=== PATIENT | female | born 1995 | race American Indian/Alaskan Native ===

== ENCOUNTER 2018-07-25 13:26 | Emergency (ER) | payer BC ==
[2018-07-25 13:40] VITALS: TEMP 97.9; BMI 23.1
--- NOTE | 2018-07-25 14:11 | ED PDOC ---
Arrival/HPI - General Chief Complaint: Back Pain Time Seen by Provider: 07/25/18 13:33 Historian: Patient - History of Present Illness Narrative History of Present Illness (Text): 07/25/18 14:00 A 23 year old female, with no significant past medical history, presents to the emergency department complaining of right-side abdominal pain radiating to back. Intensity of pain is intermittent. Patient reports earlier today the pain was bearable. However, at around approximately 11:00, pain became unbearable and was unable to sit. States having similar pain in the past. However she mentions she was having dysuria at the time, and currently is not experiencing this urinary issue with the right-side pain. Patient denies any other complaints at this time. No fever, no vomit, no diarrhea, no abnormal vaginal discharge. No PMD 07/26/18 11:16 Past Medical History - Provider Review Nursing Documentation Reviewed: Yes - Psychiatric Hx Substance Use: No Family/Social History - Physician Review Nursing Documentation Reviewed: Yes Family/Social History: No Known Family HX Smoking Status: Never Smoked Hx Alcohol Use: No Hx Substance Use: No Allergies/Home Meds Allergies/Adverse Reactions: Allergies No Known Allergies Allergy (Verified 07/25/18 13:39) Home Medications: Home Meds Medication Instructions Recorded Confirmed RX: No Known Home Med 07/25/18 07/25/18 Review of Systems - Physician Review All systems were reviewed & negative as marked: Yes - Review of Systems Constitutional: absent: Fevers Gastrointestinal: Abdominal Pain (right-side pain radiating to back, intensity of pain is intermittent) Genitourinary Female: absent: Dysuria Physical Exam - Physical Exam Narrative Physical Exam (Text): Gen: VS reviewed, alert, well developed, well nourished, nontoxic, mild distress Eye: EOMI, PERRL Neck: no JVD, supple, no adenopathy CV: regular rate, regular rhythm, no rubs,no murmur, S1, S2 Pulm: no distress, clear to auscultation, no wheeze, no rhonchi, breath sounds equal, no rales Abd: soft, nontender, no guarding, no rebound, no rigidity, old surgical scarring Ext: no edema Skin: good color, no rash, no cyanosis Psych: responds appropriately to questions, normal affect Neuro: oriented x3, CN2-12 intact grossly, motor intact, sensation intact Vital Signs Reviewed: Yes Vital Signs Temp Pulse Resp BP Pulse Ox 07/25/18 13:39 97.9 F 68 17 116/80 100 Temperature: Afebrile Blood Pressure: Normal Pulse: Regular Respiratory Rate: Normal Appearance: Positive for: Well-Appearing, Non-Toxic, Comfortable Pain Distress: None Mental Status: Positive for: Alert and Oriented X 3 Medical Decision Making ED Course and Treatment: 07/25/18 14:04 Impression: 23 year old female with right-side abdominal pain radiating to back. No acute findings on physical exam. Plan: -- Abd/Pelvis CT -- Labs -- Urinalysis -- POC Urine Test -- Urine Culture -- Reassess and disposition Progress Notes: 07/25/18 18:50 patient feels well, pain controlled at this time. patient will follow up with her inside finisher this coming friday. patient understands and agreeable to plan. - RAD Interpretation Narrative RAD Interpretations (Text): 07/25/2018 15:40 Abd/Pelvis CT IMPRESSION: Large right adnexal soft tissue mass, possibly enlarged ovary or ovarian in etiology. Recommend pelvic ultrasound for further evaluation. Mesenteric/pericecal sub cm lymph nodes, nonspecific. The appendix is not visualized. No secondary signs of acute appendicitis. Right lower lobe atelectasis and/or scarring. Dictator: Meghann Christine MD Radiology Orders: 07/25/18 13:57 ABDOMEN & PELVIS [ABD & PELVIS W/O PO OR IV CONT] [CT] Stat - Scribe Statement The provider has reviewed the documentation as recorded by the Buddy Landry Provider Scribe Attestation: All medical record entries made by the Scribe were at my direction and personally dictated by me. I have reviewed the chart and agree that the record accurately reflects my personal performance of the history, physical exam, medical decision making, and the department course for this patient. I have also personally directed, reviewed, and agree with the discharge instructions and disposition. Disposition/Present on Arrival - Present on Arrival Any Indicators Present on Arrival: No History of DVT/PE: No History of Uncontrolled Diabetes: No Urinary Catheter: No History of Decub. Ulcer: No History Surgical Site Infection Following: None - Disposition Have Diagnosis and Disposition been Completed?: Yes Diagnosis: Hemorrhagic cyst of right ovary Disposition: HOME/ ROUTINE Disposition Time: 18:50 Patient Plan: Discharge Condition: STABLE Discharge Instructions (ExitCare): Ovarian Cyst (DC) Forms: [facility] [employer] [facility] ([place]ian), WORK NOTE
[2018-07-25 14:58] LABS: ALB/GLOB RATIO 1.4 (1.1-1.8); ALBUMIN 5.1 g/dL (3.0-4.8); ALT/SGPT 24 U/L (7-56); AST/SGOT 27 U/L (14-36); BLOOD UREA NITROGEN 10 mg/dL (7-21); CALCIUM 9.9 mg/dL (8.4-10.5); GFR NON-AFRICAN AMERICAN > 60
[2018-07-25 14:59] LABS: URINE BILIRUBIN NEGATIVE (NEGATIVE); URINE BLOOD NEGATIVE (NEGATIVE); URINE GLUCOSE (UA) NEGATIVE (NEGATIVE); URINE LEUKOCYTE ESTERASE NEGATIVE Leu/uL (NEGATIVE); URINE PROTEIN NEGATIVE mg/dL (<30 mg/dL); URINE UROBILINOGEN 0.2 E.U./dL (<1 E.U./dL)
[2018-07-25 15:02] LABS: BASO # 0.01 K/mm3 (0.0-2.0); BASO % 0.2 % (0.0-3.0); EOS # 0.1 (0.0-0.7); EOS % 1.3 % (1.5-5.0); GRAN # 2.53 (1.4-6.5); GRAN % 55.4 % (50.0-68.0); HEMOGLOBIN 14.1 g/dL (12.0-16.0); LYMPH # 1.7 (1.2-3.4); LYMPH % 36.3 % (22.0-35.0); MEAN CELL VOLUME 86.9 fl (80.0-105.0); MEAN CORPUSCULAR HEMOGLOBIN 28.5 pg (25.0-35.0); MEAN CORPUSCULAR HGB CONC 32.8 g/dl (31.0-37.0); MEAN PLATELET VOLUME 10.5 fl (7.0-11.0); MONO # 0.3 (0.1-0.6); MONO % 6.8 % (1.0-6.0); RBC 4.95 10^6/uL (3.5-6.1); RED CELL DISTRIBUTION WIDTH 12.6 % (11.5-14.5); WHITE BLOOD COUNT 4.6 10^3/uL (4.5-11.0)
[2018-07-25 15:04] LABS: URINE APPEARANCE CLEAR (CLEAR); URINE COLOR YELLOW (YELLOW)
--- NOTE | 2018-07-25 15:46 | CT ---
PROCEDURE: CT Abdomen and Pelvis without Oral or IV contrast. HISTORY: right flank pain COMPARISON: None available. TECHNIQUE: Contiguous axial images of the abdomen and pelvis. No oral or IV contrast administered. Coronal and Sagittal reformats generated and reviewed. Radiation dose: Total exam DLP = 229.74 mGy-cm. This CT exam was performed using one or more of the following dose reduction techniques: Automated exposure control, adjustment of the mA and/or kV according to patient size, and/or use of iterative reconstruction technique. FINDINGS: Examination limited by paucity of intra-abdominal/intrapelvic fat. There is limited evaluation of the solid organs without the administration of IV contrast. LOWER THORAX: Right lower lobe atelectasis and/or scarring. No visible pleural effusion or pneumothorax. LIVER: Unremarkable unenhanced appearance. GALLBLADDER AND BILE DUCTS: Unremarkable unenhanced appearance. PANCREAS: Unremarkable unenhanced appearance. SPLEEN: Unremarkable unenhanced appearance. ADRENALS: Unremarkable unenhanced appearance. KIDNEYS AND URETERS: No hydronephrosis or obstructing renal calculus. BLADDER: The urinary bladder appears unremarkable. REPRODUCTIVE: Uterus is present. Large right adnexal soft tissue mass, possibly ovary or ovarian in etiology. APPENDIX: The appendix is not definitively identified. No secondary signs of acute appendicitis. BOWEL: The stomach is nondistended. Lack of oral contrast limits evaluation for bowel pathology. The bowel loops appear within normal limits of caliber without evidence of intestinal obstruction. PERITONEUM: No significant free fluid. No definite free air. LYMPH NODES: Mesenteric/pericecal sub cm lymph nodes, nonspecific. VASCULATURE: No atherosclerotic calcification present. No aortic aneurysm. BONES: No acute osseous abnormality is detected. OTHER FINDINGS: None. IMPRESSION: Large right adnexal soft tissue mass, possibly enlarged ovary or ovarian in etiology. Recommend pelvic ultrasound for further evaluation. Mesenteric/pericecal sub cm lymph nodes, nonspecific. The appendix is not visualized. No secondary signs of acute appendicitis. Right lower lobe atelectasis and/or scarring. Findings discussed with Dr. Donohue on 07/25/18 at 3:30 p.m.
[2018-07-25 18:42] VITALS: BP 106/67; PULSE 66; RESP 18; O2SAT 100
--- NOTE | 2018-07-26 12:59 | US ---
Date of service: 07/25/2018 HISTORY: right pelvic pain, torsion COMPARISON: CT abdomen and pelvis without contrast performed 07/25/18 TECHNIQUE: Transvaginal pelvic ultrasound. FINDINGS: UTERUS: Measures 6.3 x 3.3 x 3.9 cm. Anteverted. ENDOMETRIUM: Measures 1 cm in diameter. CERVIX: No cervical abnormality identified. RIGHT OVARY: The right ovary is not adequately visualized. There is a large heterogeneous structure in the right adnexal region measuring approximately 6.2 x 3.4 x 4.4 cm, indeterminate in etiology. This finding does demonstrate evidence of vascularity. Appearance raises suspicion for large hemorrhagic cyst. Alternatives including malignant neoplasm cannot be excluded. LEFT OVARY: Measures 2.8 x 1.3 x 2.1 cm. Blood flow is demonstrated. FREE FLUID: No significant free fluid noted. OTHER FINDINGS: None. IMPRESSION: The right ovary is not clearly identified. Large heterogeneous mass in the right adnexal region measuring approximately 6.2 x 3.4 x 4.4 cm is indeterminate in etiology. This finding demonstrates evidence of vascularity. Appearance raises suspicion for large hemorrhagic cyst. Alternatives including malignant neoplasm cannot be excluded however considered less likely given patient's age and clinical pattern. Recommend clinical correlation, NURSE MIDWIFE/CLINICAL INSTRUCTOR consultation, and imaging follow-up. MRI without and with IV contrast is suggested. At minimum a 6 week ultrasound follow-up is recommended. The above results are predicated on the assumption of a negative beta HCG/ test. Correlate clinically. Preliminary impression was provided by Maimai. Study marked for PA review.
== END 2018-07-25 19:00 | disposition home or self-care (01) ==
LOC: MERGE 13:26 → ED 13:26
DX: N83.201 Unspecified ovarian cyst, right side (principal)